=== PATIENT | female | born 1940 | race Caucasian/White ===

== ENCOUNTER 2017-11-18 16:28 | Emergency (ER) | END 2017-11-18 21:12 | disposition home or self-care (01) ==

== ENCOUNTER 2018-11-13 16:48 | Emergency (ER) | payer OTHER ==
[~2018-11-13] VITALS: Ht 160 cm; Wt 79.5 kg
[~2018-11-13 16:48] MED LIST: ALBU18HF INHALATION; FLUT1AER INHALATION; MECL12.574 PO
[2018-11-13 17:03] VITALS: BP 141/66; PULSE 76; RESP 20; Ht 160 cm; Wt 79.5 kg
[2018-11-13] MEDS ORDERED: SODI126M NASAL (17:37)
[2018-11-13] MEDS ORDERED: AMOX1TAB10 PO (17:37)
[2018-11-13] MEDS ORDERED: FLUT16SP17 NASAL (17:37)
--- NOTE | 2018-11-13 17:49 | ERD ---
ER Documentation Chief Complaint Chief Complaint HERNANDEZ 'top of head' x3-4months, 'previously dx'd with sinus infection'. HPI 78-year-old female presenting with sinus pressure x3 months. Patient was recently seen at her dentist when the dentist took an x-ray states she has a sinus infection. Patient states she is been symptomatic for 3 months. Patient has an allergy to cats and she is living with her daughter who owns 3 cats. Patient states she is not allergic to any medications and nothing has alleviated her symptoms. ROS All systems reviewed and are negative except as per history of present illness. Medications Home Meds Active Scripts Loratadine (NON-DROWSY ALLERGY) 10 Mg Tablet, 10 MG PO QAM for 30 Days, TAB Prov:ALANA KANG PA-C 11/13/18 Amoxicillin/Potassium Clav (Amox-Clav 875-125 mg Tablet) 875-125 mg Tab, 1 TAB PO BID, #20 TAB Prov:ALANA KANG PA-C 11/13/18 Fluticasone Propionate* (Fluticasone Propionate* Nasal) 50 Mcg/[place] - 16 Gm [place].susp, 1 SPRAY NASAL BID, #1 BOTTLE TO EACH NOSTRIL Prov:ALANA KANG PA-C 11/13/18 Sodium Chloride (Saline Nasal Mist) 126 Ml Mist, 2 SPRAY NASAL QHS for 10 Days, BOTTLE Prov:ALANA KANG PA-C 11/13/18 Meclizine Hcl* (Antivert*) 12.5 Mg Tab, 12.5 MG PO Q6H PRN for DIZZINESS, #20 TAB Prov:YOJANA GUILLEN MD 11/18/17 Reported Medications Albuterol Sulfate* (Ventolin HFA*) 18 Gm Hfa.aer.ad, 2 PUFF INHALATION Q6H for WSOB, #1 INHALER 11/18/17 Fluticasone-Vilanterol (Breo Ellipta Inhaler) 100-25 Mcg/Actuation Aer.pow.ba, 1 PUFF INHALATION DAILY, #1 INHALER 11/18/17 Allergies Allergies: Coded Allergies: No Known Allergy (Unverified , 11/18/17) PMhx/Soc History of Surgery: Yes (Dental extraction, Lap Fundiplication, hysterectomy, tonsillectomy) Anesthesia Reaction: No Hx Neurological Disorder: No Hx Respiratory Disorders: Yes (COPD) Hx Cardiac Disorders: No Hx Psychiatric Problems: No Hx Miscellaneous Medical Probl: Yes (Vertigo, sinus infection) Hx Alcohol Use: Yes (Socially) Hx Substance Use: No Hx Tobacco Use: No FmHx Family History: No diabetes, No coronary disease, No other Physical Exam Vitals Vital Signs Date Temp Pulse Resp B/P (MAP) Pulse Ox O2 O2 Flow FiO2 Time Delivery Rate 11/13/18 98.1 76 20 141/66 98 17:03 (91) Physical Exam GENERAL: The patient is well-appearing, well-nourished, in no acute distress HEENT: Atraumatic. Conjunctivae are pink. Pupils equal, round, and reactive to light. There is no scleral icterus. Tympanic membranes clear bilaterally. Oropharynx clear. No nystagmus or photophobia. Patient has pain on palpation to the frontal and maxillary sinuses. NECK: C-spine is soft and supple. There is no meningismus. There is no cervical lymphadenopathy. CHEST: Clear to auscultation bilaterally. There are no rales, wheezes or rhonchi. HEART: Regular rate and rhythm. No murmurs, clicks, rubs or gallops. NEUROLOGIC: Alert and oriented. Cranial nerves II through V intact. Motor strength in all 4 extremities with 5 out of 5 strength. Sensation grossly intact. Normal speech and gait. Results 24 hrs Laboratory Tests Test 11/13/18 17:46 Bedside Urine pH (LAB) 7.0 Bedside Urine Protein (LAB) Negative Bedside Urine Glucose (UA) Negative Bedside Urine Ketones (LAB) Negative Bedside Urine Blood Negative Bedside Urine Nitrite (LAB) Negative Bedside Urine Leukocyte Esterase (L Negative Procedures/MDM ED course: POC urine The patient was stable throughout the ED course. The patient and/or family informed of laboratory and diagnostic imaging results throughout the ED course. Patient tolerated medication well with no adverse reactions. Patient reported improvement in pain. Medical decision making: Patient 78-year-old female presented to ED for sinus pressure, discomfort, possible infection. Patient was seen at her dentist was getting dental work on her x-rays came back showing that she had fluid in her sinuses. Patient's daughter had a complex condition where her sinuses were draining and she suffered from recurrent bacterial sinus infections. The daughter stated she had a have a surgery done to have the issue fixed. Patient has been symptomatic for 3 months and has not been getting better with at-home treatment. Physical exam noted pain on palpation to the frontal maxillary sinuses, patient states she has itchy ears and frequent nasal drainage. Patient's pupils are equal round reactive light patient does not have slurred speech, patient states she does h ave mild headache from time to time. At this time I have low suspicion for TIA CVA, orbital cellulitis, fracture, pneumonia, meningitis, sinusitis, otitis externa, acute otitis media, strep pharyngitis, epiglottitis or peritonsillar abscess. Advised patient that she should follow-up with her primary care provider regarding frequent sinus infections. The patient is going to need to see an ENT doctor. Patients can follow-up with her primary care provider to get into one that her insurance takes. Patient is being sent home with prescription for Augmentin, fluticasone, loratadine, saline nasal spray. Patient was advised if symptoms worsen to return the ER immediately. All questions were answered upon discharge. The patient and the patient's daughter are in agreement to the treatment plan the patient's daughter is going to help her get in to the proper ENT by going with her mother to her primary care doctor. Prescription for home: Augmentin Loratadine Fluticasone Saline nasal spray Discharge: At this time, patient is stable for discharge and outpatient management. I have instructed the patient to follow-up with his\her primary care physician in 1 to 2 days. I have discussed with the patient the possibility of needing to see a specialist for further work-up and imaging studies if symptoms persist. I have instructed the patient to promptly return to the ER for any new or worsening symptoms including increased pain, fever, nausea, vomiting, weakness or LOC. The patient and\or family expressed understanding of and agreement with this plan. All questions were answered. Home care instructions were provided. Disclaimer: Inadvertent spelling and grammatical errors are likely due to EHR\dictation software use and do not reflect on the overall quality of patient care. Also, please note that the electronic time recorded on the note does not necessarily reflect the actual time of the patient encounter. Departure Diagnosis: Primary Impression: Sinus infection Sinusitis location: unspecified location Chronicity: unspecified Qualified Codes: J32.9 - Chronic sinusitis, unspecified Additional Impression: Polyuria Condition: Stable Patient Instructions: Sinus Headache Referrals: COUNT INCLUDES THE [facility] YOU HAVE RECEIVED A MEDICAL SCREENING EXAM AND THE RESULTS INDICATE THAT YOU DO NOT HAVE A CONDITION THAT REQUIRES URGENT TREATMENT IN THE EMERGENCY DEPARTMENT. FURTHER EVALUATION AND TREATMENT OF YOUR CONDITION CAN WAIT UNTIL YOU ARE SEEN IN YOUR DOCTORS OFFICE WITHIN THE NEXT 1-2 DAYS. IT IS YOUR RESPONSIBILITY TO MAKE AN APPOINTMENT FOR FOLOW-UP CARE. IF YOU HAVE A PRIMARY DOCTOR --you should call your primary doctor and schedule an appointment IF YOU DO NOT HAVE A PRIMARY DOCTOR YOU CAN CALL OUR PHYSICIAN REFERRAL HOTLINE AT IF YOU CAN NOT AFFORD TO SEE A PHYSICIAN YOU CAN CHOSE FROM THE FOLLOWING [facility] CLINICS [facility] [address] [facility] [address] [facility] [facility] [address] [facility] [address] [facility] [address] [facility] [address] [facility] [address]. [facility] YOU HAVE RECEIVED A MEDICAL SCREENING EXAM AND THE RESULTS INDICATE THAT YOU DO NOT HAVE A CONDITION THAT REQUIRES URGENT TREATMENT IN THE EMERGENCY DEPARTMENT. FURTHER EVALUATION AND TREATMENT OF YOUR CONDITION CAN WAIT UNTIL YOU ARE SEEN IN YOUR DOCTORS OFFICE WITHIN THE NEXT 1-2 DAYS. IT IS YOUR RESPONSIBILITY TO MAKE AN APPOINTMENT FOR FOLOW-UP CARE. IF YOU HAVE A PRIMARY DOCTOR --you should call your primary doctor and schedule and appointment IF YOU DO NOT HAVE A PRIMARY DOCTOR YOU CAN CALL OUR PHYSICIAN REFERRAL HOTLINE AT . IF YOU CAN NOT AFFORD TO SEE A PHYSICIAN YOU CAN CHOSE FROM THE FOLLOWING [facility] INSTITUTIONS: [facility] [address] [place] [address] [facility] [address] [place] [address] [facility] [address] [place] [address] ALANA KANG PA-C Nov 13, 2018 17:49
[2018-11-13] MEDS ORDERED: LORA10TA55 PO (17:59)
== END 2018-11-13 18:05 | disposition home or self-care (01) ==
LOC: FTE 16:48
DX: J32.9 Chronic sinusitis, unspecified (principal); J44.9 Chronic obstructive pulmonary disease, unspecified; R35.8 Other polyuria
CPT/HCPCS: 81003; 99283

== ENCOUNTER 2018-12-28 17:27 | Inpatient (IN) | payer OTHER ==
[~2018-12-28] VITALS: Ht 157.5 cm; Wt 76.0 kg
[~2018-12-28 17:27] MED LIST changes: +ACET-141 PO; +AMOX1TAB10 PO; +DOCU-144 PO; +FLUT16SP17 NASAL; +LACT1CAP28 PO; +LEVO500T48 PO; +LORA10TA3 PO; +LORA10TA55 PO; +MAGN400T28 PO; +METR500T NGT; +MONT10TA24 PO; +MULTI PO; +PANT40TA3 PO; +SODI126M NASAL
[2018-12-28 17:31] VITALS: Ht 157.5 cm; Wt 76.0 kg
[2018-12-28] MEDS ORDERED: SODIUM CHLORIDE 0.9% 1L BAG IV* STA (17:33)
[2018-12-28] MEDS ORDERED: ONDANSETRON 4 MG INJ IV STA (17:52)
[2018-12-28] MEDS ORDERED: morphine 2 MG INJ IV STA (17:52)
[2018-12-28] MEDS ORDERED: CEFTRIAXONE 1 GM/50 ML (PMX) 50 ML IVPB ONE (18:00)
[2018-12-28] MEDS ORDERED: ACETAMINOPHEN 325 MG TAB PO ONE (18:00)
[2018-12-28] MEDS ORDERED: LORATADINE/PSEUDOEPHED (SR) TAB PO ONE (20:00)
[2018-12-28 23:48] VITALS: BP 142/70; PULSE 100; RESP 20
[2018-12-29] MEDS ORDERED: NACL 0.9% 3 ML SYG IV SCH (01:00)
[2018-12-29] MEDS ORDERED: ONDANSETRON 4 MG INJ IV PRN (01:00)
[2018-12-29] MEDS ORDERED: HYDROCODONE/APAP (5/325) TAB PO PRN (01:00)
[2018-12-29] MEDS ORDERED: ALBUTEROL 18 GM INHALER INH PRN (01:00)
[2018-12-29] MEDS: SOD CHLORIDE 0.9% 1,000 ML IV SCH ×2 (01:01→13:11)
[2018-12-29] MEDS: HYDROCODONE/APAP (5/325) TAB PO PRN ×2 (01:06→13:10)
[2018-12-29 08:07] VITALS: BP 135/62; PULSE 94; RESP 18
[2018-12-29] MEDS: MONTELUKAST 10 MG TAB PO SCH (08:38)
[2018-12-29] MEDS: FLUTICASONE/VILANTEROL 100-25 INH SCH (08:39)
[2018-12-29] MEDS: LORATADINE 10 MG TAB PO SCH (08:39)
[2018-12-29] MEDS: HEPARIN 5,000 UNIT/1 ML VIAL SC SCH ×2 (08:41→22:27)
--- NOTE | 2018-12-29 09:32 | HP ---
Date/Time of Note Date/Time of Note DATE: 12/29/18 TIME: 08:53 Assessment/Plan VTE Prophylaxis SCD applied (from Nsg): Yes Pharmacological prophylaxis: heparin Lines/Catheters IV Catheter Type (from Nrsg): Saline Lock Urinary Cath still in place: No Assessment/Plan Assessment/Plan 1. Right adnexal mass -Patient does have a history of it. Compared to the CT that was done in [facility] in 2017, size is stable -Obtain MRI -Gynecology consult 2. UTI: IV antibiotic. Follow-up culture results 3. History of urinary incontinence, cystocele and rectocele: Status post repair at [facility] in 2012 -Status post bladder repair with a sling, DUPS, anterior and posterior with mesh at [facility] in 2012 -Patient complains of something protruding through her vagina when she exercises. -She has an appointment with a school traffic supervisor on 15 of April. She really likes to have a second opinion here in this hospital about whether or not mesh needs to be removed 4. Asthma: Supplemental oxygen and bronchodilators as needed Result Diagram: 12/29/18 0440 12/29/18 0440 Results 24hrs Laboratory Tests Test 12/28/18 17:44 12/28/18 17:47 12/28/18 17:48 12/28/18 19:46 Urine Color STRAW Urine Clarity CLEAR Urine pH 7.0 Urine Specific 1.005 [place]ig Urine Ketones NEGATIVE Urine Nitrite NEGATIVE Urine Bilirubin NEGATIVE Urine Urobilinogen NEGATIVE Urine Leukocyte 1+ H Esterase Urine Microscopic 1 RBC Urine Microscopic 18 H WBC Urine Hemoglobin 1+ H Urine Glucose NEGATIVE Urine Total Protein NEGATIVE Prothrombin Time 12.3 Prothrombin Time 1.0 Ratio INR International 0.90 Normalized Ratio Activated 25.5 Partial Thromboplast Time White Blood Count 10.3 Red Blood Count 4.11 L Hemoglobin 12.3 Hematocrit 37.8 Mean Corpuscular 92.0 Volume Mean Corpuscular 29.9 Hemoglobin Mean Corpuscular 32.5 Hemoglobin Concent Red Cell 14.2 Distribution Width Platelet Count 223 Mean Platelet Volume 9.4 Immature 0.400 Granulocytes % Neutrophils % 69.7 Lymphocytes % 21.8 Monocytes % 7.3 Eosinophils % 0.3 Basophils % 0.5 Nucleated Red Blood 0.0 Cells % Immature 0.040 H Granulocytes # Neutrophils # 7.2 Lymphocytes # 2.3 Monocytes # 0.8 Eosinophils # 0.0 Basophils # 0.1 Nucleated Red Blood 0.0 Cells # Sodium Level 138 Potassium Level 4.0 Chloride Level 100 Carbon Dioxide Level 27 Anion Gap 11 Blood Urea Nitrogen 12 Creatinine 0.86 Est Glomerular Filtrat Rate mL/min Glucose Level 135 POC Venous Lactate 1.0 Calcium Level 9.4 Total Bilirubin 0.6 Direct Bilirubin 0.00 Indirect Bilirubin 0.6 Aspartate Amino 25 Transf (AST/SGOT) Alanine 22 Aminotransferase (AL T/SGPT) Alkaline Phosphatase 64 Troponin I < 0.012 Total Protein 8.3 H Albumin 4.6 Globulin 3.70 H Albumin/Globulin 1.24 Ratio Lactic Acid Level 0.8 Test 12/28/18 22:10 12/29/18 04:40 Lactic Acid Level 0.6 White Blood Count 8.1 # Red Blood Count 3.64 L Hemoglobin 11.1 L Hematocrit 33.6 L Mean Corpuscular 92.3 Volume Mean Corpuscular 30.5 Hemoglobin Mean Corpuscular 33.0 Hemoglobin Concent Red Cell 14.2 Distribution Width Platelet Count 178 # Mean Platelet Volume 9.4 Immature 0.400 Granulocytes % Neutrophils % 74.2 Lymphocytes % 16.5 Monocytes % 8.2 Eosinophils % 0.2 Basophils % 0.5 Nucleated Red Blood 0.0 Cells % Immature 0.030 Granulocytes # Neutrophils # 6.0 Lymphocytes # 1.3 Monocytes # 0.7 Eosinophils # 0.0 Basophils # 0.0 Nucleated Red Blood 0.0 Cells # Sodium Level 141 Potassium Level 3.8 Chloride Level 110 # Carbon Dioxide Level 26 Anion Gap 5 Blood Urea Nitrogen 9 Creatinine 0.65 Est Glomerular Filtrat Rate mL/min Glucose Level 123 Calcium Level 8.4 Phosphorus Level 2.9 Magnesium Level 2.2 Total Bilirubin 0.6 Direct Bilirubin 0.00 Indirect Bilirubin 0.6 Aspartate Amino 21 Transf (AST/SGOT) Alanine 19 Aminotransferase (AL T/SGPT) Alkaline Phosphatase 56 Total Protein 6.5 # Albumin 3.6 # Globulin 2.90 Albumin/Globulin 1.24 Ratio HPI/ROS Admit Date/Time Admit Date/Time Dec 28, 2018 at 19:57 Hx of Present Illness Patient is a 78-year-old female with a history of asthma, urinary incontinence, distal rectocele, cystocele status post status post bladder repair with a sling, DUPS, anterior and posterior with mesh at [facility] in 2012, history of right adnexal mass. Patient presents the ER complaining of right lower quadrant abdominal pain. Patient had this pain previously. Patient stated that in 2012, at [facility], " mesh was placed". 1 of the reason that she came to the hospital is to see if that needs to be removed because she is tired of the pain and also getting urine infection. The last time however she was diagnosed with urine infection according to her was in 2017 in [facility]. Patient also stated that when she exercises she feels something being pulled down into her vagina which she actually is able to touch with her hand. She actually has an appointment with the school traffic supervisor on April 15. Patient also has a history of right adnexal mass. According to documentation that she has at the bedside, in 2016 when she was in [facility], she had a CT of the abdomen/pelvis, which showed an oval- shaped structure in the right pelvic area posteriorly, not totally characterized measuring 4 x 3 cm. MRI showed an oval mass measuring 3.2 x 2.7 cm along the right adnexa attached to the vaginal stump. Patient denied ever having a biopsy. When she presented to the ER, UA consistent with UTI. CT abdomen/pelvis shows the followin. A few mildly dilated loops of small bowel with scattered air-fluid levels with relative collapsed distal loops, though without a discrete transition point identified. Findings are nonspecific and may represent an enteritis, a partial / intermittent small bowel obstruction is not entirely excluded. 2. Mild hepatomegaly, please correlate with liver function exam. 3. Punctate nonobstructing stone in the right kidney. 4. No stent is seen within the bladder as per the provided clinical history. Please correlate. 5. Apparent 3.9 cm right adnexal lesion with hyperdense mural nodule. Recommend prompt pelvic ultrasound as initial step in further evaluation. PMH/Family/Social Past Medical History Past Surgical Hx: other (see hpi) Family History Significant Family History: no pertinent family hx Social History Alcohol Use: other Smoking Status: Unknown if ever smoked Drug Use: other Exam Exam Constitutional: no acute distress Head: normocephalic, atraumatic Eyes: EOMI, PERRL Respiratory: clear to auscultation, normal air movement Cardiovascular: no skipped beat Gastrointestinal: soft, non-tender Extremities: palpable pulse Medications Current Medications Sodium Chloride 1,000 ml @ 80 mls/hr [id number] IV Last administered on 12/29/18 01:01; Admin Dose 80 MLS/HR; Start 12/29/18 at 00:38 IV Flush (NS 3 ml) 3 ml PER PROTOCOL IV ; Start 12/29/18 at 01:00 Ondansetron HCl (Zofran Inj) 4 mg Q6H PRN IV NAUSEA/VOMITING; Start 12/29/18 at 01:00 Acetaminophen (Tylenol Tab) 650 mg Q6H PRN PO .PAIN 1-3 OR TEMP; Start 12/29/18 at 01:00 Acetaminophen/ Hydrocodone Bitart ([place] (5/325)) 1 tab Q6H PRN PO .MOD PAIN 4- 6; Start 12/29/18 at 01:00 Acetaminophen/ Hydrocodone Bitart ([place] (5/325)) 2 tab Q6H PRN PO .SEVERE PAIN 7-10 Last administered on 12/29/18 01:06; Admin Dose 2 TAB; Start 12/29/18 at 01:00 Heparin Sodium (Porcine) (Heparin (5000 Units/1ml)) 5,000 unit Q12 SC Last administered on 12/29/18at 08:41; Admin Dose 5,000 UNIT; Start 12/29/18 at 09:00 Albuterol/ Ipratropium (Duoneb) 3 ml Q2H RESP THERAPY PRN HHN SHORTNESS OF BREATH; Start 12/29/18 at 01:00 Albuterol (Ventolin Hfa) 2 puff Q6H RESP THERAPY PRN INH SHORTNESS OF BREATH; Start 12/29/18 at 01:00 Fluticasone/ Vilanterol (Breo Ellipta 100-25 Mcg Inh) 1 inh DAILY INH Last administered on 12/29/18 08:39; Admin Dose 1 INH; Start 12/29/18 at 09:00 Loratadine (Claritin) 10 mg QAM PO Last administered on 12/29/18 08:39; Admin Dose 10 MG; Start 12/29/18 at 09:00 Montelukast Sodium (Singulair) 10 mg DAILY PO Last administered on 12/29/18 08:38; Admin Dose 10 MG; Start 12/29/18 at 09:00 Ceftriaxone Sodium 50 ml @ 100 mls/hr Q24H IVPB ; Start 12/29/18 at 18:00 Coded Allergies: No Known Allergy (Unverified , 12/29/18) Social History Smoking Status: Never smoker Exam/Review of Systems Vital Signs Vitals Vital Signs Date Temp Pulse Resp B/P (MAP) Pulse Ox O2 O2 Flow FiO2 Time Delivery Rate 12/29/18 99.6 94 18 135/62 96 Room Air 08:07 (86) Intake and Output 12/28/18 12/28/18 12/29/18 1515:00 23:00 07:00 IntakeIntake Total 2330 ml 200 ml BalanceBalance 2330 ml 200 ml MARGA ALDANA MD Dec 29, 2018 09:07
--- NOTE | 2018-12-29 10:18 | PN ---
Date/Time of Note Date/Time of Note DATE: 12/29/18 TIME: 10:17 Assessment/Plan VTE Prophylaxis Risk score (from Nsg)>0 risk: 6 SCD applied (from Nsg): Yes Pharmacological prophylaxis: heparin Lines/Catheters IV [facility]ter [facility]from [facility] Saline Lock Urinary Cath still in place: No Assessment/Plan Hospital Course 78-year-old female with a history of asthma, urinary incontinence, distal rectocele, cystocele status post status post bladder repair with a sling, DUPS, anterior and posterior with mesh at [facility] in 2012, history of right adnexal mass who presented with fever, chills and abd pain. She is currently managed as follows: 1. Sepsis with UTI -continue IV abx, supportive care, f/u cultures 2. Right adnexal mass -Patient does have a history of it. Compared to the CT that was done in [facility] in 2016, size is stable -Obtain MRI -Gynecology consult 3. History of urinary incontinence, cystocele and rectocele: Status post repair at [facility] in 2012 -Status post bladder repair with a sling, DUPS, anterior and posterior with mesh at [facility] in 2012 -Patient complains of something protruding through her vagina when she exercises. -She has an appointment with a equipment mechanic specialist on 15 of April. She really likes to have a second opinion here in this hospital about whether or not mesh needs to be removed 4. Asthma: Supplemental oxygen and bronchodilators as needed 5. Acute enteritis: likely contributing to abd pain, will add flagyl to regimen. further interventions per course Result Diagram: 12/29/18 0440 12/29/18 0440 Results 24hrs Laboratory Tests Test 12/28/18 17:44 12/28/18 17:47 12/28/18 17:48 12/28/18 19:46 Urine Color STRAW Urine Clarity CLEAR Urine pH 7.0 Urine Specific 1.005 [place] Urine Ketones NEGATIVE Urine Nitrite NEGATIVE Urine Bilirubin NEGATIVE Urine Urobilinogen NEGATIVE Urine Leukocyte 1+ H Esterase Urine Microscopic 1 RBC Urine Microscopic 18 H WBC Urine Hemoglobin 1+ H Urine Glucose NEGATIVE Urine Total Protein NEGATIVE Prothrombin Time 12.3 Prothrombin Time 1.0 Ratio INR International 0.90 Normalized Ratio Activated 25.5 Partial Thromboplast Time White Blood Count 10.3 Red Blood Count 4.11 L Hemoglobin 12.3 Hematocrit 37.8 Mean Corpuscular 92.0 Volume Mean Corpuscular 29.9 Hemoglobin Mean Corpuscular 32.5 Hemoglobin Concent Red Cell 14.2 Distribution Width Platelet Count 223 Mean Platelet Volume 9.4 Immature 0.400 Granulocytes % Neutrophils % 69.7 Lymphocytes % 21.8 Monocytes % 7.3 Eosinophils % 0.3 Basophils % 0.5 Nucleated Red Blood 0.0 Cells % Immature 0.040 H Granulocytes # Neutrophils # 7.2 Lymphocytes # 2.3 Monocytes # 0.8 Eosinophils # 0.0 Basophils # 0.1 Nucleated Red Blood 0.0 Cells # Sodium Level 138 Potassium Level 4.0 Chloride Level 100 Carbon Dioxide Level 27 Anion Gap 11 Blood Urea Nitrogen 12 Creatinine 0.86 Est Glomerular Filtrat Rate mL/min Glucose Level 135 POC Venous Lactate 1.0 Calcium Level 9.4 Total Bilirubin 0.6 Direct Bilirubin 0.00 Indirect Bilirubin 0.6 Aspartate Amino 25 Transf (AST/SGOT) Alanine 22 Aminotransferase (AL T/SGPT) Alkaline Phosphatase 64 Troponin I < 0.012 Total Protein 8.3 H Albumin 4.6 Globulin 3.70 H Albumin/Globulin 1.24 Ratio Lactic Acid Level 0.8 Test 12/28/18 22:10 12/29/18 04:40 Lactic Acid Level 0.6 White Blood Count 8.1 # Red Blood Count 3.64 L Hemoglobin 11.1 L Hematocrit 33.6 L Mean Corpuscular 92.3 Volume Mean Corpuscular 30.5 Hemoglobin Mean Corpuscular 33.0 Hemoglobin Concent Red Cell 14.2 Distribution Width Platelet Count 178 # Mean Platelet Volume 9.4 Immature 0.400 Granulocytes % Neutrophils % 74.2 Lymphocytes % 16.5 Monocytes % 8.2 Eosinophils % 0.2 Basophils % 0.5 Nucleated Red Blood 0.0 Cells % Immature 0.030 Granulocytes # Neutrophils # 6.0 Lymphocytes # 1.3 Monocytes # 0.7 Eosinophils # 0.0 Basophils # 0.0 Nucleated Red Blood 0.0 Cells # Sodium Level 141 Potassium Level 3.8 Chloride Level 110 # Carbon Dioxide Level 26 Anion Gap 5 Blood Urea Nitrogen 9 Creatinine 0.65 Est Glomerular Filtrat Rate mL/min Glucose Level 123 Calcium Level 8.4 Phosphorus Level 2.9 Magnesium Level 2.2 Total Bilirubin 0.6 Direct Bilirubin 0.00 Indirect Bilirubin 0.6 Aspartate Amino 21 Transf (AST/SGOT) Alanine 19 Aminotransferase (AL T/SGPT) Alkaline Phosphatase 56 Total Protein 6.5 # Albumin 3.6 # Globulin 2.90 Albumin/Globulin 1.24 Ratio Subjective 24 Hr Interval Summary Free Text/Dictation still with fevers and chills, doesn't feel ready to go home Exam/Review of Systems Exam Vitals Vital Signs Date Temp Pulse Resp B/P (MAP) Pulse Ox O2 O2 Flow FiO2 Time Delivery Rate 12/29/18 99.6 94 18 135/62 96 Room Air 08:07 (86) Intake and Output 12/28/18 12/28/18 12/29/18 1515:00 23:00 07:00 IntakeIntake Total 2330 ml 200 ml BalanceBalance 2330 ml 200 ml Exam General: A&O x3, answering questions appropriately, mildly ill looking HEENT: NC/ AT. PERRL. EOM intact Neck: supple CVS: S1, S2, RRR. no murmurs. no pain on chest wall palpation Lungs: CTA b/l. no wheezing or rhonchi Abd: soft, nontender, +BS Ext: moving all extremities skin: no rashes Results Results 24hrs Laboratory Tests Test 12/28/18 17:44 12/28/18 17:47 12/28/18 17:48 12/28/18 19:46 Urine Color STRAW Urine Clarity CLEAR Urine pH 7.0 Urine Specific 1.005 [place] Urine Ketones NEGATIVE Urine Nitrite NEGATIVE Urine Bilirubin NEGATIVE Urine Urobilinogen NEGATIVE Urine Leukocyte 1+ H Esterase Urine Microscopic 1 RBC Urine Microscopic 18 H WBC Urine Hemoglobin 1+ H Urine Glucose NEGATIVE Urine Total Protein NEGATIVE Prothrombin Time 12.3 Prothrombin Time 1.0 Ratio INR International 0.90 Normalized Ratio Activated 25.5 Partial Thromboplast Time White Blood Count 10.3 Red Blood Count 4.11 L Hemoglobin 12.3 Hematocrit 37.8 Mean Corpuscular 92.0 Volume Mean Corpuscular 29.9 Hemoglobin Mean Corpuscular 32.5 Hemoglobin Concent Red Cell 14.2 Distribution Width Platelet Count 223 Mean Platelet Volume 9.4 Immature 0.400 Granulocytes % Neutrophils % 69.7 Lymphocytes % 21.8 Monocytes % 7.3 Eosinophils % 0.3 Basophils % 0.5 Nucleated Red Blood 0.0 Cells % Immature 0.040 H Granulocytes # Neutrophils # 7.2 Lymphocytes # 2.3 Monocytes # 0.8 Eosinophils # 0.0 Basophils # 0.1 Nucleated Red Blood 0.0 Cells # Sodium Level 138 Potassium Level 4.0 Chloride Level 100 Carbon Dioxide Level 27 Anion Gap 11 Blood Urea Nitrogen 12 Creatinine 0.86 Est Glomerular Filtrat Rate mL/min Glucose Level 135 POC Venous Lactate 1.0 Calcium Level 9.4 Total Bilirubin 0.6 Direct Bilirubin 0.00 Indirect Bilirubin 0.6 Aspartate Amino 25 Transf (AST/SGOT) Alanine 22 Aminotransferase (AL T/SGPT) Alkaline Phosphatase 64 Troponin I < 0.012 Total Protein 8.3 H Albumin 4.6 Globulin 3.70 H Albumin/Globulin 1.24 Ratio Lactic Acid Level 0.8 Test 12/28/18 22:10 12/29/18 04:40 Lactic Acid Level 0.6 White Blood Count 8.1 # Red Blood Count 3.64 L Hemoglobin 11.1 L Hematocrit 33.6 L Mean Corpuscular 92.3 Volume Mean Corpuscular 30.5 Hemoglobin Mean Corpuscular 33.0 Hemoglobin Concent Red Cell 14.2 Distribution Width Platelet Count 178 # Mean Platelet Volume 9.4 Immature 0.400 Granulocytes % Neutrophils % 74.2 Lymphocytes % 16.5 Monocytes % 8.2 Eosinophils % 0.2 Basophils % 0.5 Nucleated Red Blood 0.0 Cells % Immature 0.030 Granulocytes # Neutrophils # 6.0 Lymphocytes # 1.3 Monocytes # 0.7 Eosinophils # 0.0 Basophils # 0.0 Nucleated Red Blood 0.0 Cells # Sodium Level 141 Potassium Level 3.8 Chloride Level 110 # Carbon Dioxide Level 26 Anion Gap 5 Blood Urea Nitrogen 9 Creatinine 0.65 Est Glomerular Filtrat Rate mL/min Glucose Level 123 Calcium Level 8.4 Phosphorus Level 2.9 Magnesium Level 2.2 Total Bilirubin 0.6 Direct Bilirubin 0.00 Indirect Bilirubin 0.6 Aspartate Amino 21 Transf (AST/SGOT) Alanine 19 Aminotransferase (AL T/SGPT) Alkaline Phosphatase 56 Total Protein 6.5 # Albumin 3.6 # Globulin 2.90 Albumin/Globulin 1.24 Ratio Medications Medication Current Medications Sodium Chloride 1,000 ml @ 80 mls/hr [id number] IV Last administered on 12/29/18at 01:01; Admin Dose 80 MLS/HR; Start 12/29/18 at 00:38 IV Flush (NS 3 ml) 3 ml PER PROTOCOL IV ; Start 12/29/18 at 01:00 Ondansetron HCl (Zofran Inj) 4 mg Q6H PRN IV NAUSEA/VOMITING; Start 12/29/18 at 01:00 Acetaminophen (Tylenol Tab) 650 mg Q6H PRN PO .PAIN 1-3 OR TEMP; Start 12/29/18 at 01:00 Acetaminophen/ Hydrocodone Bitart ([place] (5/325)) 1 tab Q6H PRN PO .MOD PAIN 4- 6; Start 12/29/18 at 01:00 Acetaminophen/ Hydrocodone Bitart ([place] (5/325)) 2 tab Q6H PRN PO .SEVERE PAIN 7-10 Last administered on 12/29/18 01:06; Admin Dose 2 TAB; Start 12/29/18 at 01:00 Heparin Sodium (Porcine) (Heparin (5000 Units/1ml)) 5,000 unit Q12 SC Last administered on 12/29/18at 08:41; Admin Dose 5,000 UNIT; Start 12/29/18 at 09:00 Albuterol/ Ipratropium (Duoneb) 3 ml Q2H RESP THERAPY PRN HHN SHORTNESS OF BREATH; Start 12/29/18 at 01:00 Albuterol (Ventolin Hfa) 2 puff Q6H RESP THERAPY PRN INH SHORTNESS OF BREATH; Start 12/29/18 at 01:00 Fluticasone/ Vilanterol (Breo Ellipta 100-25 Mcg Inh) 1 inh DAILY INH Last administered on 12/29/18 08:39; Admin Dose 1 INH; Start 12/29/18 at 09:00 Loratadine (Claritin) 10 mg QAM PO Last administered on 12/29/18 08:39; Admin Dose 10 MG; Start 12/29/18 at 09:00 Montelukast Sodium (Singulair) 10 mg DAILY PO Last administered on 12/29/18 08:38; Admin Dose 10 MG; Start 12/29/18 at 09:00 Ceftriaxone Sodium 50 ml @ 100 mls/hr Q24H IVPB ; Start 12/29/18 at 18:00 JAMEL FULLER Dec 29, 2018 10:18
[2018-12-29] MEDS: ACETAMINOPHEN 325 MG TAB PO PRN ×2 (10:43→22:26)
[2018-12-29 14:00] VITALS: BP 104/51; PULSE 81; RESP 18
[2018-12-29] MEDS: metroNIDAZOLE 500 MG TAB NGT SCH ×2 (14:06→22:26)
[2018-12-29] MEDS ORDERED: FAMOTIDINE 20 MG TAB PO SCH (14:30)
--- NOTE | 2018-12-29 17:01 | QN ---
Documentation Comment Thank you for consulting with us 78 yo with Hx of Mesh placement in [facility] and Anterior and posterior cystocele and also incidental finding of 3.9 cm cyst in Right ovary Patient is requesting a consult to have her questions answered.patient has an outside Wind Energy Technician, PMH Asthma ,Hx of Urinary incontinence PSH Mesh placement and Ant and Post Repair PE VS stable Gen AND Abd soft NT ND Genitalia Cystocele and Rectocele notice --->I recommend CA 125 --->NO Acute Solar Energy Systems Engineer intervention is needed at this time.,She needs to follow up with her Wind Energy Technician &Urogynecologist in her Network to follow up on her issues, -->3.9 cm is not a concern if it's not enlarging and persistent and CA 125 is WNL otherwise needs to be removed by her Gynecologit --->patient's questions are answered --->IF you have any further questions ,please let the refrigeration plant cork insulator laborist know STAR Olsen M.D. Dec 29, 2018 17:01
[2018-12-29] MEDS: CEFTRIAXONE 1 GM/50 ML (PMX) 50 ML IVPB SCH (17:15)
--- NOTE | 2018-12-29 17:28 | ERD ---
ER Documentation Chief Complaint Chief Complaint ABD PAIN / BACK PAIN HPI The patient is a 78-year-old female, presenting to the ER because of right-sided abdominal pain and right lower back pain and nausea and for 1 day. She compla ins of painful urination for the last 2 months, had similar symptoms previously from kidney infection, denies fever, chills, neck pain, chest pain, dyspnea, vomiting, diarrhea. She does not smoke nor drink Past medical history: Asthma, allergic rhinitis, GERD, pelvic mass Past surgical history: Urinary incontinence, hysterectomy ROS All systems reviewed and are negative except as per history of present illness. Medications Home Meds Active Scripts Sodium Chloride (Saline Nasal Mist) 126 Ml Mist, 2 SPRAY NASAL QHS for 10 Days, BOTTLE Prov:ALANA KANG PA-C 11/13/18 Reported Medications Acetaminophen* (Acetaminophen*) 500 MG Extra Strength Tablet, 500 MG PO Q4H PRN for PAIN AND OR ELEVATED TEMP, TAB 12/29/18 Magnesium Oxide* (Magnesium Oxide*) 400 Mg Tablet, 400 MG PO DAILY, TAB 12/29/18 Multivitamins* (Theragran*) 1 Tab Tab, 1 TAB PO DAILY, TAB 12/29/18 Loratadine* (Loratadine*) 10 Mg Tablet, 10 MG PO QAM for 30 Days, #30 TAKE 1 TABLET BY MOUTH IN THE MORNING; 12/29/18 Montelukast Sodium* (Montelukast Sodium*) 10 Mg Tablet, 10 MG PO DAILY for 90 Days, #90 12/29/18 Albuterol Sulfate* (Ventolin HFA*) 18 Gm Hfa.aer.ad, 2 PUFF INHALATION Q6H for WSOB, #1 INHALER 11/18/17 Fluticasone-Vilanterol (Breo Ellipta Inhaler) 100-25 Mcg/Actuation Aer.pow.ba, 1 PUFF INHALATION DAILY, #1 INHALER 11/18/17 Discontinued Scripts Loratadine (NON-DROWSY ALLERGY) 10 Mg Tablet, 10 MG PO QAM for 30 Days, TAB Prov:ALANA KANG PA-C 11/13/18 Amoxicillin/Potassium Clav (Amox-Clav 875-125 mg Tablet) 875-125 mg Tab, 1 TAB PO BID, #20 TAB Prov:ALANA KANG PA-C 11/13/18 Fluticasone Propionate* (Fluticasone Propionate* Nasal) 50 Mcg/[place] - 16 Gm [place].susp, 1 SPRAY NASAL BID, #1 BOTTLE TO EACH NOSTRIL Prov:ALANA KANG PA-C 11/13/18 Meclizine Hcl* (Antivert*) 12.5 Mg Tab, 12.5 MG PO Q6H PRN for DIZZINESS, #20 TAB Prov:YOJANA GUILLEN MD 11/18/17 Allergies Allergies: Coded Allergies: No Known Allergy (Unverified , 12/29/18) PMhx/Soc History of Surgery: Yes (HYSTERECTOMY, LAP FUNDAL SUPPLICATION) Anesthesia Reaction: No Hx Neurological Disorder: No Hx Respiratory Disorders: Yes (ASTHMA) Hx Cardiac Disorders: No Hx Psychiatric Problems: No Hx Miscellaneous Medical Probl: No Hx Alcohol Use: Yes (SELDOM) Hx Substance Use: No Hx Tobacco Use: No Smoking Status: Never smoker Physical Exam Vitals Vital Signs Date Temp Pulse Resp B/P (MAP) Pulse Ox O2 O2 Flow FiO2 Time Delivery Rate 12/28/18 99.8 83 26 130/54 97 Room Air 19:00 (79) 12/28/18 102.7 100 16 131/72 97 17:31 (91) Physical Exam Const: No acute distress. Head: Atraumatic. Eyes: Normal Conjunctiva. ENT: Normal External Ears, Nose and Mouth. Neck: Full range of motion. No meningismus. Resp: Clear to auscultation bilaterally. Cardio: Regular rate and rhythm. Abd: Soft, non distended, normal bowel sounds, vague and diffuse abdo trevin tenderness, positive for right CVA tenderness, no rigidity/rebound tenderness Skin: No petechiae or rashes. Back: No midline or flank tenderness. Ext: No cyanosis, or edema. Neur: Awake and alert. No focal deficit Psych: Normal Mood and Affect. Result Diagram: 12/29/1843912/29/18439 Results 24 hrs Laboratory Tests Test 12/28/18 17:44 12/28/18 17:47 12/28/18 17:48 12/28/18 19:46 Urine Color STRAW Urine Clarity CLEAR Urine pH 7.0 Urine Specific 1.005 [place] Urine Ketones NEGATIVE mg/dL Urine Nitrite NEGATIVE mg/dL Urine Bilirubin NEGATIVE mg/dL Urine NEGATIVE mg/dL Urobilinogen Urine Leukocyte 1+ Jaime/ul Esterase Urine Microscopic 1 /HPF RBC Urine Microscopic 18 /HPF WBC Urine Hemoglobin 1+ mg/dL Urine Glucose NEGATIVE mg/dL Urine Total NEGATIVE mg/dl Protein Prothrombin Time 12.3 Sec Prothrombin Time 1.0 Ratio INR International 0.90 Normalized Ratio Activated 25.5 Sec Partial Thrombopl ast Time White Blood Count 10.3 10^3/ul Red Blood Count 4.11 10^6/ul Hemoglobin 12.3 g/dl Hematocrit 37.8 % Mean Corpuscular 92.0 fl Volume Mean Corpuscular 29.9 pg Hemoglobin Mean Corpuscular 32.5 g/dl Hemoglobin Concen t Red Cell 14.2 % Distribution Width Platelet Count 223 10^3/UL Mean Platelet 9.4 fl Volume Immature 0.400 % Granulocytes % Neutrophils % 69.7 % Lymphocytes % 21.8 % Monocytes % 7.3 % Eosinophils % 0.3 % Basophils % 0.5 % Nucleated Red 0.0 /100WBC Blood Cells % Immature 0.040 10^3/ul Granulocytes # Neutrophils # 7.2 10^3/ul Lymphocytes # 2.3 10^3/ul Monocytes # 0.8 10^3/ul Eosinophils # 0.0 10^3/ul Basophils # 0.1 10^3/ul Nucleated Red 0.0 10^3/ul Blood Cells # Sodium Level 138 mmol/L Potassium Level 4.0 mmol/L Chloride Level 100 mmol/L Carbon Dioxide 27 mmol/L Level Anion Gap 11 Blood Urea 12 mg/dl Nitrogen Creatinine 0.86 mg/dl Est Glomerular mL/min Filtrat Rate mL/min Glucose Level 135 mg/dl POC Venous 1.0 mmol/L Lactate Calcium Level 9.4 mg/dl Total Bilirubin 0.6 mg/dl Direct Bilirubin 0.00 mg/dl Indirect 0.6 mg/dl Bilirubin Aspartate Amino 25 IU/L Transf (AST/SGOT) Alanine 22 IU/L Aminotransferase (ALT/SGPT) Alkaline 64 IU/L Phosphatase Troponin I < 0.012 ng/ml Total Protein 8.3 g/dl Albumin 4.6 g/dl Globulin 3.70 g/dl Albumin/Globulin 1.24 Ratio Lactic Acid Level 0.8 mmol/L Current Medications Medications Dose Sig/Radhika Start Time Status Last (Trade) Ordered Route PRN Stop Time Admin Dose Reason Admin Sodium 2,280 ml BOLUS OVER 2 12/28/18 DC 12/28/18 Chloride HOURS STAT 17:33 17:52 (NS) IV* 12/28/18 17:35 Ceftriaxone 50 ml @ ONCE ONCE 12/28/18 DC 12/28/18 Sodium 100 mls/hr IVPB 18:00 17:52 12/28/18 18:29 650 mg ONCE ONCE 12/28/18 DC 12/28/18 Acetaminophen PO 18:00 17:52 (Tylenol 12/28/18 18:01 Tab) Morphine 2 mg ONCE STAT 12/28/18 DC Sulfate IV 17:52 (morphine) 12/28/18 17:53 Ondansetron 4 mg ONCE STAT 12/28/18 DC HCl (Zofran IV 17:52 Inj) 12/28/18 17:53 Procedures/[place] [id number] Radiology Main Line: [phone] DIAGNOSTIC IMAGING REPORT Patient: VIANCA GARNER : 1940 Age: 78 Sex: F MR #: [id number] DOS: 12/28/181751 Ordering MD: MILLER PRICE MD Location: E/R Room/Bed: PROCEDURE: CT Abdomen and Pelvis without contrast. CLINICAL INDICATION: Abdominal pain, stent in bladder TECHNIQUE: CT scan of the abdomen and pelvis without IV contrast was performed on a multi-detector high-resolution CT scanner. Oral contrast was not administered. Coronal and sagittal reformatted images were obtained from the axial source images. DICOM images are available. Radiation dose: CTDIvol (mGy) = 17.73 ; total DLP (mGy-cm) = 962.88 One or more of the following dose reduction techniques were used: - Automated exposure control. - Adjustment of the mA and/or kV according to patient size. - Use of iterative reconstruction technique. COMPARISON: None. FINDINGS: In the absence of intravenous contrast, the study constitutes a limited ass essment of the solid organs, bowel and vessels. Lower thorax: Normal. Liver: Mild hepatomegaly measuring 18.7 cm in craniocaudal dimension. Biliary: Normal gallbladder. No biliary dilatation. Pancreas: Mild fatty involution of the pancreas. Spleen: Normal. Adrenal Glands: Normal. Kidneys/Ureters: Punctate nonobstructing stone in the right kidney. Bladder: Normal. Reproductive organs: Apparent 3.9 cm right adnexal lesion with hyperdense mural nodule (series 3 image 129). Gastrointestinal Tract: Small hiatal hernia. Colonic diverticulosis without evidence of diverticulitis. Appendix not definitively identified, though no right lower quadrant fat stranding to suggest appendicitis. There are a few mildly dilated loops of small bowel with a few scattered air-fluid levels with relative collapse distal loop. Peritoneum/Retroperitoneum: No free fluid or free air. Lymph nodes: No bulky adenopathy. Vessels: Moderate aortoiliac atherosclerotic calcifications. Musculoskeletal: Degenerative changes of the osseous structures. IMPRESSION: 1. A few mildly dilated loops of small bowel with scattered air-fluid levels with relative collapsed distal loops, though without a discrete transition point identified. Findings are nonspecific and may represent an enteritis, a partial / intermittent small bowel obstruction is not entirely excluded. 2. Mild hepatomegaly, please correlate with liver function exam. 3. Punctate nonobstructing stone in the right kidney. 4. No stent is seen within the bladder as per the provided clinical history. Please correlate. 5. Apparent 3.9 cm right adnexal lesion with hyperdense mural nodule. Recommend prompt pelvic ultrasound as initial step in further evaluation. 6. Additional findings as detailed above. RPTAT: PP Physician Armando Date Time Electronically viewed and signed by Physician Armando on 12/28/2018 19:13 RP/ CC: MILLER PRICE MD [id number] [place] [id number] Radiology Main Line: [phone] DIAGNOSTIC IMAGING REPORT Patient: VIANCA GARNER : 1940 Age: 78 Sex: F MR #: [id number] DOS: 12/28/18 1733 Ordering MD: MILLER PRICE MD Location: E/R Room/Bed: PROCEDURE: XR chest. CLINICAL INDICATION: Sepsis TECHNIQUE: Frontal view of the chest was obtained. COMPARISON: 11/18/2017 FINDINGS: Cardiomediastinal silhouette is normal. There is no pneumothorax or pleural effusion. There is unchanged bilateral perihilar peribronchial cuffing extending to the lung bases. There is no focal pulmonic consolidation. IMPRESSION: 1. Bilateral perihilar peribronchial cuffing extending to the lung bases, unchanged and could be sequela of bronchitis. No new infiltrates. RPTAT:HAJM Mary Catalan Physician Date Time Electronically viewed and signed by Mary Catalan Physician on 12/28/2018 18:19 RM/ CC: MILLER PRICE MD [id number] EKG: Read by emergency physician Rate/Rhythm: Normal Sinus Rhythm 90 beats/min QRS, ST, T-waves: No ST elevation, no T inversion Impression: Abnormal EKG MEDICAL MAKING DECISION: The patient is a 78-year-old female, presenting with acute right pyelonephritis, was treated with normal saline 30 mm/kg IV, Rocephin 1 g IV for acute cystitis, Tylenol 650 mg p.o., morphine 2 mg IV for pain, Zofran 4 mg IV for nausea and Claritin-D for her allergic rhinitis with good response. The differential diagnoses considered include but are not limited to cholelithiasis, cholecystitis, choledocholithiasis, cholangitis, pancreatitis, hepatitis, gastritis, peptic ulcer disease, gastric ulcer, appendicitis, cystitis, diverticulitis, partial small bowel obstruction. Departure Diagnosis: Primary Impression: Pyelonephritis Additional Impression: Anemia Condition: Stable Comments I discussed the findings with the patient. I notified the patient with Dr. Serrano at 7:55p via [employer], who was made aware of the lab, the treatment, the patient condition. The patient is admitted to [facility] Disclaimer: Inadvertent spelling and grammatical errors are likely due to EHR/dictation software use and do not reflect on the overall quality of patient care. Also, please note that the electronic time recorded on this note does not necessarily reflect the actual time of the patient encounter. MILLER PRICE MD Dec 29, 2018 17:28
[2018-12-29 19:49] VITALS: BP 119/57; PULSE 85; RESP 18
[2018-12-29] MEDS ORDERED: ALBUTEROL HFA 8 GM INHALER INH PRN (21:00)
[2018-12-29 22:22] VITALS: BP 143/63; PULSE 100; RESP 18
[2018-12-29] MEDS: DOCUSATE SODIUM 100 MG CAP PO SCH (22:26)
[2018-12-30] MEDS: HYDROCODONE/APAP (5/325) TAB PO PRN ×2 (00:47→22:21)
[2018-12-30] MEDS ORDERED: CALCIUM CARBONATE 500 MG CHEW TAB PO PRN (01:00)
[2018-12-30 02:00] VITALS: BP 112/56; PULSE 80; RESP 18
[2018-12-30] MEDS: metroNIDAZOLE 500 MG TAB NGT SCH ×3 (06:40→21:40)
[2018-12-30 07:09] VITALS: BP 102/50; PULSE 71; RESP 18
[2018-12-30] MEDS: FLUTICASONE/VILANTEROL 100-25 INH SCH (08:57)
[2018-12-30] MEDS: FAMOTIDINE 20 MG TAB PO SCH ×2 (08:57→21:41)
[2018-12-30] MEDS: MONTELUKAST 10 MG TAB PO SCH (08:57)
[2018-12-30] MEDS: SOD CHLORIDE 0.9% 1,000 ML IV SCH (08:57)
[2018-12-30] MEDS: LACTOBACILLUS RHAMNOSUS CAP PO SCH ×2 (08:57→21:41)
[2018-12-30] MEDS: DOCUSATE SODIUM 100 MG CAP PO SCH ×2 (08:57→21:41)
[2018-12-30] MEDS: LORATADINE 10 MG TAB PO SCH (08:57)
[2018-12-30] MEDS: HEPARIN 5,000 UNIT/1 ML VIAL SC SCH ×2 (09:01→21:43)
[2018-12-30] MEDS ORDERED: ALBUTEROL 0.083% (NEB) 2.5 MG/3 ML AMP HHN PRN (13:30)
[2018-12-30 15:35] VITALS: BP 106/44; PULSE 75; RESP 18
[2018-12-30] MEDS: CEFTRIAXONE 1 GM/50 ML (PMX) 50 ML IVPB SCH (17:40)
[2018-12-30] MEDS: ACETAMINOPHEN 325 MG TAB PO PRN (17:44)
[2018-12-30 20:01] VITALS: BP 125/60; PULSE 79; RESP 18
[2018-12-30] MEDS: ALBUTEROL/IPRATROPIUM (NEB) 3 ML AMP HHN PRN (22:12)
[2018-12-31 02:32] VITALS: BP 129/64; PULSE 76; RESP 18
[2018-12-31] MEDS: metroNIDAZOLE 500 MG TAB NGT SCH (06:36)
[2018-12-31 08:09] VITALS: BP 133/62; PULSE 72; RESP 18
[2018-12-31] MEDS: ALBUTEROL/IPRATROPIUM (NEB) 3 ML AMP HHN PRN (08:25)
[2018-12-31] MEDS: FAMOTIDINE 20 MG TAB PO SCH (08:31)
[2018-12-31] MEDS: LACTOBACILLUS RHAMNOSUS CAP PO SCH (08:31)
[2018-12-31] MEDS: LORATADINE 10 MG TAB PO SCH (08:31)
[2018-12-31] MEDS: MONTELUKAST 10 MG TAB PO SCH (08:32)
[2018-12-31] MEDS: HEPARIN 5,000 UNIT/1 ML VIAL SC SCH (08:34)
[2018-12-31] MEDS: FLUTICASONE/VILANTEROL 100-25 INH SCH (08:34)
[2018-12-31] MEDS: DOCUSATE SODIUM 100 MG CAP PO SCH (08:35)
[2018-12-31] MEDS ORDERED: BUDESONIDE (NEB) 0.5MG/2ML AMP HHN SCH (11:00)
--- NOTE | 2018-12-31 11:14 | DS ---
Date/Time of Note Date/Time of Note DATE: 12/31/18 TIME: 11:05 Discharge Summary Admission/Discharge Info Admit Date/Time Dec 28, 2018 at 19:57 Discharge Date/Time Patient Condition: Stable Consults Gynaecology: Hermilo Wills MD . Procedures PROCEDURE: MR Pelvis with and without contrast. CLINICAL INDICATION: Right adnexal lesion. TECHNIQUE: Protocol: MRI of the pelvis with and without intravenous contrast using a pelvis soft tisssue protocol. Contrast: 10 cc of intravenous Prohance. COMPARISON: CT pelvis, 12/28/2018. FINDINGS: Uterus: Status post hysterectomy. Adnexa: There is an endometrioma identified in the right adnexa measuring up to 3 cm. Urinary bladder: Normal. Bowel: At least moderate sigmoid colonic diverticulosis without diverticulitis. Lymph nodes: No enlarged or abnormal lymph nodes Peritoneal cavity: Small nonspecific free fluid in the pelvis. Bones: Tarlov cysts are present in the sacrum. IMPRESSION: 3 cm endometrioma in the right adnexa. At least moderate sigmoid colonic diverticulosis. RPTAT: EE .Beka Fuller MD, MD Date Time Electronically viewed and signed by .Beka Fuller MD, MD on 12/30/2018 07:36 .C/ CC: JAMEL FULLER [id number] ____ PROCEDURE: CT Abdomen and Pelvis without contrast. CLINICAL INDICATION: Abdominal pain, stent in bladder TECHNIQUE: CT scan of the abdomen and pelvis without IV contrast was performed on a multi-detector high-resolution CT scanner. Oral contrast was not administered. Coronal and sagittal reformatted images were obtained from the axial source images. DICOM images are available. Radiation dose: CTDIvol (mGy) = 17.73 ; total DLP (mGy-cm) = 962.88 One or more of the following dose reduction techniques were used: - Automated exposure control. - Adjustment of the mA and/or kV according to patient size. - Use of iterative reconstruction technique. COMPARISON: None. FINDINGS: In the absence of intravenous contrast, the study constitutes a limited assessment of the solid organs, bowel and vessels. Lower thorax: Normal. Liver: Mild hepatomegaly measuring 18.7 cm in craniocaudal dimension. Biliary: Normal gallbladder. No biliary dilatation. Pancreas: Mild fatty involution of the pancreas. Spleen: Normal. Adrenal Glands: Normal. Kidneys/Ureters: Punctate nonobstructing stone in the right kidney. Bladder: Normal. Reproductive organs: Apparent 3.9 cm right adnexal lesion with hyperdense mural nodule (series 3 image 129). Gastrointestinal Tract: Small hiatal hernia. Colonic diverticulosis without evidence of diverticulitis. Appendix not definitively identified, though no right lower quadrant fat stranding to suggest appendicitis. There are a few mildly dilated loops of small bowel with a few scattered air-fluid levels with relative collapse distal loop. Peritoneum/Retroperitoneum: No free fluid or free air. Lymph nodes: No bulky adenopathy. Vessels: Moderate aortoiliac atherosclerotic calcifications. Musculoskeletal: Degenerative changes of the osseous structures. IMPRESSION: 1. A few mildly dilated loops of small bowel with scattered air-fluid levels with relative collapsed distal loops, though without a discrete transition point identified. Findings are nonspecific and may represent an enteritis, a partial / intermittent small bowel obstruction is not entirely excluded. 2. Mild hepatomegaly, please correlate with liver function exam. 3. Punctate nonobstructing stone in the right kidney. 4. No stent is seen within the bladder as per the provided clinical history. Please correlate. 5. Apparent 3.9 cm right adnexal lesion with hyperdense mural nodule. Recommend prompt pelvic ultrasound as initial step in further evaluation. 6. Additional findings as detailed above. RPTAT: PP Physician Armando Date Time Electronically viewed and signed by Chelsy Arauz Physician on 12/28/2018 19:13 RP/ CC: MILLER PRICE MD [id number] . Hospital Course 78-year-old female who had presented to our emergency room with complaints of right lower quadrant abdominal pain and was found to have urinalysis consistent with a urinary tract infection. CT was also consistent with possible enteritis. Patient was found to be septic from infection and managed accordingly. She was seen by [employer] because she has a mesh placed and she felt it was contributing to her symptoms. [employer] recommended follow-up outpatient with her urologist who did the original surgery. Patient has a history of asthma and began to have some shortness of breath and was treated with bronchodilator and inhaled steroid with good improvement. There is also some concern for mild bronchitis but she will be treated with antibiotics. Is a chronic 3 cm adnexal mass that was unchanged this was felt on MRI to be an endometrioma in the right adnexa. No further intervention required at this time. At this time patient has been evaluated in detail and is in stable condition and cleared for discharge. . Home Meds Active Scripts Sodium Chloride (Saline Nasal Mist) 126 Ml Mist, 2 SPRAY NASAL QHS for 10 Days, BOTTLE Prov:ALANA KANG PA-C 11/13/18 Reported Medications Acetaminophen* (Acetaminophen*) 500 MG Extra Strength Tablet, 500 MG PO Q4H PRN for PAIN AND OR ELEVATED TEMP, TAB 12/29/18 Magnesium Oxide* (Magnesium Oxide*) 400 Mg Tablet, 400 MG PO DAILY, TAB 12/29/18 Multivitamins* (Theragran*) 1 Tab Tab, 1 TAB PO DAILY, TAB 12/29/18 Loratadine* (Loratadine*) 10 Mg Tablet, 10 MG PO QAM for 30 Days, #30 TAKE 1 TABLET BY MOUTH IN THE MORNING; 12/29/18 Montelukast Sodium* (Montelukast Sodium*) 10 Mg Tablet, 10 MG PO DAILY for 90 Days, #90 12/29/18 Albuterol Sulfate* (Ventolin HFA*) 18 Gm Hfa.aer.ad, 2 PUFF INHALATION Q6H for [facility], #1 INHALER 11/18/17 Fluticasone-Vilanterol (Breo Ellipta Inhaler) 100-25 Mcg/Actuation Aer.pow.ba, 1 PUFF INHALATION DAILY, #1 INHALER 11/18/17 Discontinued Scripts Loratadine (NON-DROWSY ALLERGY) 10 Mg Tablet, 10 MG PO QAM for 30 Days, TAB Prov:ALANA KANG PA-C 11/13/18 Amoxicillin/Potassium Clav (Amox-Clav 875-125 mg Tablet) 875-125 mg Tab, 1 TAB PO BID, #20 TAB Prov:ALANA KANG PA-C 11/13/18 Fluticasone Propionate* (Fluticasone Propionate* Nasal) 50 Mcg/[place] - 16 Gm [place].susp, 1 SPRAY NASAL BID, #1 BOTTLE TO EACH NOSTRIL Prov:ALANA KANG PA-C 11/13/18 Meclizine Hcl* (Antivert*) 12.5 Mg Tab, 12.5 MG PO Q6H PRN for DIZZINESS, #20 TAB Prov:YOJANA GUILLEN MD 11/18/17 Follow-up Plan Followup with your primary doctor within the next 1-2 weeks. Also plan to follow-up with your urologist as we discussed. Review your medication list with your nurse before leaving and if you need new prescriptions please let your nurse know. I may have made changes to your home medications or given you new prescriptions, please let your primary doctor know as well. Stay compliant with your medications and report any side effects to your PCP or pharmacist. Return to the ER if you have any concerns and cannot reach your doctors or call your insurance company, they usually have a nurse that can help you. Primary Care Provider Not On Staff Doctor Time spent on discharge: > 30 minutes JAMEL FULLER Dec 31, 2018 11:13
[2018-12-31] MEDS ORDERED: LEVOFLOXACIN 500 MG TAB PO ONE (12:00)
[2018-12-31] MEDS ORDERED: GUAIFENESIN LA 600 MG TABSR PO ONE (12:00)
[2018-12-31] MEDS ORDERED: ALBUTEROL HFA 8 GM INHALER INH SCH (12:00)
[2018-12-31] MEDS ORDERED: GUAIFENESIN LA 600 MG TABSR PO SCH (21:00)
[2019-01-01] MEDS ORDERED: LEVOFLOXACIN 250 MG TAB PO SCH (06:00)
--- NOTE | 2019-01-08 06:30 | EN ---
Date/Time of Note Date/Time of Note DATE: 01/08/19 TIME: 06:30 Event Note Medicine Medicine Event Note LATE PROGRESS NOTE DATE OF SERVICE: 12/30/18 SUBJECTIVE: still having fever and chills, wants to talk about possibility of mesh increasing the frequency of her UTIs OBJECTIVE: Vital signs reiewed General: A&O x3, answering questions appropriately, mildly ill looking HEENT: NC/ AT. PERRL. EOM intact Neck: supple CVS: S1, S2, RRR. no murmurs. no pain on chest wall palpation Lungs: CTA b/l. no wheezing or rhonchi Abd: soft, nontender, +BS Ext: moving all extremities skin: no rashes LABS AND IMAGING: Labs reviewed PROCEDURE: MR Pelvis with and without contrast. CLINICAL INDICATION: Right adnexal lesion. TECHNIQUE: Protocol: MRI of the pelvis with and without intravenous contrast using a pelvis soft tisssue protocol. Contrast: 10 cc of intravenous Prohance. COMPARISON: CT pelvis, 12/28/2018. FINDINGS: Uterus: Status post hysterectomy. Adnexa: There is an endometrioma identified in the right adnexa measuring up to 3 cm. Urinary bladder: Normal. Bowel: At least moderate sigmoid colonic diverticulosis without diverticulitis. Lymph nodes: No enlarged or abnormal lymph nodes Peritoneal cavity: Small nonspecific free fluid in the pelvis. Bones: Tarlov cysts are present in the sacrum. IMPRESSION: 3 cm endometrioma in the right adnexa. At least moderate sigmoid colonic diverticulosis. RPTAT: EE .Beka Fuller MD, MD Date Time Electronically viewed and signed by .Beka Fuller MD, on 12/30/2018 07:36 .C/ CC: JAMEL FULLER [id number] ASSESSMENT / PLAN: 78-year-old female with a history of asthma, urinary incontinence, distal rectocele, cystocele status post status post bladder repair with a sling, DUPS, anterior and posterior with mesh at [facility] in 2012, history of right adnexal mass who presented with fever, chills and abd pain. She is currently managed as follows: 1. Sepsis with UTI -continue IV abx, supportive care, f/u cultures 2. Right adnexal mass -Patient does have a history of it. Compared to the CT that was done in [facility] in 2017, size is stable -Obtain MRI shows endometrioma, not likely to require further intervention, await statistical engineer review 3. History of urinary incontinence, cystocele and rectocele: Status post repair at [facility] in 2012 -Status post bladder repair with a sling, DUPS, anterior and posterior with mesh at [facility] in 2012 -Patient complains of something protruding through her vagina when she exercises. -She has an appointment with a account support manager on 15 of April. She really likes to have a second opinion here in this hospital about whether or not mesh needs to be removed, statistical engineer reiew pending 4. Asthma: Supplemental oxygen and bronchodilators as needed 5. Acute enteritis: likely contributing to abd pain and fever , continue current abx further interventions per course Disclaimer: Inadvertent spelling and grammatical errors as well as erroneous comments are likely due to EHR/dictation software use and do not reflect on the quality of delivered patient care. They will be resolved as soon as possible once noted. Also, please note that the electronic time recorded on this node does not necessarily reflect the actual time of the visit. JAMEL FULLER Jan 08, 2019 06:30
== END 2018-12-31 13:38 | disposition home or self-care (01) | DRG 872 ==
LOC: E/R 17:27 → MS1 19:57
PROVIDERS: ADMIT Internal Medicine; ATTEND Family Medicine
DX: A41.9 Sepsis, unspecified organism (principal); N39.0 Urinary tract infection, site not specified; Z99.81 Dependence on supplemental oxygen; R19.09 Other intra-abdominal and pelvic swelling, mass and lump; D23.9 Other benign neoplasm of skin, unspecified; R32 Unspecified urinary incontinence; J45.909 Unspecified asthma, uncomplicated; K52.9 Noninfective gastroenteritis and colitis, unspecified; N81.10 Cystocele, unspecified; K21.9 Gastro-esophageal reflux disease without esophagitis; B96.20 Unspecified Escherichia coli [E. coli] as the cause of diseases classified elsewhere
CPT/HCPCS: 36415; 71045; 72196; 74176; 80048; 80053; 81001; 83605; 83735; 84100; 84484; 85025; 85610; 85730; 86304; 87086; 93005; 94640; 94664; 96361; 96365; J0696; J1644; J2405; J7030